=== PATIENT | male | born 1950 | race Caucasian/White ===

== ENCOUNTER → 2020-04-24 09:50 | Outpatient (CLI) | payer OTHER, SELFPAY ==
--- NOTE | 2020-04-24 09:58 | VDLE_ITS ---
Reason For Study: Pain Procedure LEFT Exam performed in department. CFV is compressible, spontaneous, phasic, A preliminary report was called and/or faxed competent, and demonstrates normal to RN @ [facility] office. augmentation. FV is compressible, spontaneous, phasic, competent and demonstrates normal augmentation. POP V is compressible, spontaneous, phasic, competent and demonstrates normal augmentation. T/P Trunk is compressible. PTV is compressible. LT PerV is compressible. Acute superficial vein thrombus is noted in the left GSV from distal-mid calf. 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 Interpretation Summary Deep veins of the left lower extremity are patent and compressible segmentally. There is no evidence of left lower extremity deep vein thrombosis. Valvular competence appears intact within the proximal deep venous system on the left . Acute superficial thrombophlebitis is noted in the left great saphenous vein in the mid- and distal calf. Chronic venous changes are also noted elsewhere within other segments of the left great saphenous vein. Ordering Physician: Dudley May Referring Physician: Dudley Mya Performed By: Jana Farr RVT and Student
== END ==
PROVIDERS: PCP Family Medicine; Referring Provider Family Medicine; Visit Provider Family Medicine
DX: M79.605 Pain in left leg (principal)
CPT/HCPCS: 93971

== ENCOUNTER → 2020-07-28 14:23 | Outpatient (CLI) | payer OTHER, SELFPAY | PROVIDERS: PCP Family Medicine; Referring Provider Family Medicine; Visit Provider Family Medicine | DX: Z20.828 Contact with and (suspected) exposure to other viral communicable diseases (principal) | CPT/HCPCS: 87635; U0003 ==

== ENCOUNTER → 2021-02-15 07:30 | Outpatient (CLI) | payer OTHER, SELFPAY ==
[2021-01-31 09:34] VITALS: BMI 32.0
--- NOTE | 2021-02-15 07:32 | ECHOCS_ITS ---
Reason For Study: ARRHYTHMIA Procedure This was a 2D Doppler, Color Flow transthoracic echocardiogram. Exam performed in department. Left Ventricle Normal LV size. Left ventricular systolic function is lower limits of normal. The estimated ejection fraction is 50 %. Mild segmental systolic dysfunction (see wall motion). Stage 1 diastolic dysfunction. Infero-Basal: Akinetic. Basal inferoseptal: Hypokinetic. Posterior-Basal: Mildly hypokinetic. The rest of the wall segments are normal. Right Ventricle Normal RV size. Normal systolic function. Atria The left atrium is mildly enlarged. Normal right atrium. Mitral Valve Normal mitral valve. Tricuspid Valve Normal tricuspid valve. Mild (1+) tricuspid valve insufficiency. Pulmonary artery systolic pressure is 31 mmHg. Aortic Valve Normal aortic valve. Pulmonic Valve Normal pulmonic valve. Great Vessels Normal aortic root. The pulmonary artery is normal size. Normal inferior vena cava. Pericardium/Pleural No pericardial effusion. Medication 22 gauge I.V. with prn adaptor inserted into left arm. Diluted definity 2.0ml given slow IV push to enhance endocardial definition. MMode/2D Measurements & Calculations LVIDd: 6.0 cm IVSd: 1.0 cm Ao root diam: 3.6 cm LVIDs: 4.7 cm LVPWd: 1.00 cm RVDd: 4.5 cm FS: 21.3 % LAV(MOD-bp): 87.4 ml LVAd ap4: 42.4 cm2 LVAd ap2: 43.3 cm2 LAV(MOD-bp) Indexed: 38.2 ml/m2 LVLd ap4: 9.8 cm LVLd ap2: 9.7 cm LAV(MOD-sp2): 86.3 ml EDV(MOD-sp4): 149.5 ml EDV(MOD-sp2): 157.7 ml LAV(MOD-sp4): 86.9 ml EDV(sp4-el): 155.5 ml EDV(sp2-el): 163.5 ml LVAs ap4: 27.5 cm2 LVAs ap2: 28.3 cm2 LVLs ap4: 8.5 cm LVLs ap2: 8.6 cm ESV(MOD-sp4): 72.2 ml ESV(MOD-sp2): 78.0 ml ESV(sp4-el): 75.5 ml ESV(sp2-el): 79.6 ml EF(MOD-sp4): 51.7 % EF(MOD-sp2): 50.6 % EF(sp4-el): 51.4 % SV(MOD-sp4): 77.3 ml SV(MOD-sp2): 79.7 ml SV(sp4-el): 79.9 ml LA A4 area: 26.1 cm2 LA dimension(2D): 4.1 cm RA A4 area: 21.5 cm2 Time Measurements MV dec time: 0.31 sec Doppler Measurements & Calculations MV E max joe: 53.1 cm/sec Lat Peak E' Joe: 10.2 cm/sec Med Peak E' Joe: 6.8 cm/sec MV A max joe: 60.3 cm/sec E/E' lat: 5.2 E/E' med: 7.8 MV E/A: 0.88 Ao V2 max: 137.6 cm/sec LV V1 max: 88.1 cm/sec PA V2 max: 107.1 cm/sec Ao max P.6 mmHg LV V1 max P.1 mmHg TR max joe: 259.3 cm/sec TR max P.9 mmHg ECHO/Echo Complete W/ Contrast Interpretation Summary Normal LV size. Left ventricular systolic function is lower limits of normal. The estimated ejection fraction is 50 %. Mild segmental systolic dysfunction (see wall motion). Stage 1 diastolic dysfunction. Ordering Physician: Benson Bland Referring Physician: Dudley Mya Performed By: Amy Garcia, YESICA, RVT
== END ==
PROVIDERS: PCP Family Medicine; Referring Provider Internal Medicine Cardiovascular Disease; Visit Provider Internal Medicine Cardiovascular Disease
DX: I49.49 Other premature depolarization (principal); E78.5 Hyperlipidemia, unspecified
CPT/HCPCS: 93225; 93226; 93306; Q9957; A4216; C8929

== ENCOUNTER → 2021-03-01 07:00 | Outpatient (CLI) | payer OTHER, SELFPAY ==
[2021-01-31 09:34] VITALS: BMI 32.0
--- NOTE | 2021-03-01 09:35 | STRESSREP_ITS ---
Stress Test Report Exercise myocardial perfusion stress test. 70-year-old man with a history of abnormal echocardiogram. Stress protocol: Resting EKG demonstrates normal sinus rhythm with a rate of 67 bpm occasional premature ventricular complexes noted. Resting blood pressures 150/88 mmHg. The patient exercised according to the regular Shayne protocol for total duration of 9 minutes. Patient completed stage III of the Shayne protocol. The maximum heart rate attained was 139 bpm which was 93% of maximum predicted heart rate the maximum workload was 10.1 metabolic equivalents. At rest there were no ST or T wave changes noted to suggest ischemia at peak exercise upsloping ST changes were noted. Occasional premature ventricular complexes were noted e specially during recovery. No chest pain was noted the test was terminated due to target heart rate attainment. The peak blood pressures 174/82 mmHg. Myocardial perfusion protocol. 14.3 mCi of technetium 99m sestamibi was injected at rest. The patient exercised according to regular Shayne protocol for 9 minutes and at peak exercise 44.7 mCi of technetium 99m sestamibi was injected stress images were obtained stress and rest images were reconstructed in comparing the short axis vertical long and horizontal long axis. Gated images were also obtained. Perfusion SPECT analysis: Review of the stress images demonstrate normal uptake of tracer noted in all areas of the myocardium. There is however a portion of the inferior wall which reduced perfusion noted. The resting images demonstrate a similar pattern. There are no areas of improvement to suggest ischemia. The above is suggestive of a possible previous inferior infarct though diaphragmatic and GI attenuation artifact are possible. Gated SPECT analysis: The gated ejection fraction is 51%. Conclusion: Exercise myocardial perfusion stress test with no evidence of ischemia at a high workload. Previous inferior infarct cannot be completely excluded. Preserved ejection fraction is present.
== END ==
PROVIDERS: PCP Family Medicine; Referring Provider Internal Medicine Cardiovascular Disease; Visit Provider Internal Medicine Cardiovascular Disease
DX: R93.1 Abnormal findings on diagnostic imaging of heart and coronary circulation (principal); I49.49 Other premature depolarization; E78.5 Hyperlipidemia, unspecified
CPT/HCPCS: 78452; 93017; A9500; A4216

== ENCOUNTER → 2021-04-03 10:15 | Outpatient (CLI) | payer OTHER, SELFPAY ==
[2021-01-31 09:34] VITALS: BMI 32.0
--- NOTE | 2021-04-03 10:20 | RAD_ITS ---
STUDY: X-RAY CHEST REASON FOR EXAM: Male, 70 years old. BRONCHITIS TECHNIQUE: PA and lateral views of the chest. COMPARISON: None. FINDINGS: Increased linear markings at the right lung base suggestive of either linear atelectasis and/or scarring. There is no demonstrated pleural abnormality. Normal size heart. Normal mediastinum and wilmer. Normal visualized pulmonary arteries. There is atherosclerotic calcification of the aortic arch with tortuosity. There are degenerative changes of the visualized thoracic spine. Normal visualized ribs, clavicles, and shoulders. There is no demonstrated abnormality of the visualized soft tissue structures of the upper abdomen. RAD/Chest PA and Lateral IMPRESSION: Increased linear markings at the right lung base suggestive of either linear atelectasis and/or linear scarring. Electronically Signed: Tien Garnett MD at 14:31 EDT , Service support ,
== END ==
PROVIDERS: PCP Family Medicine; Referring Provider Family Medicine; Visit Provider Family Medicine
DX: J20.9 Acute bronchitis, unspecified (principal)
CPT/HCPCS: 71046

== ENCOUNTER → 2021-04-03 10:22 | Outpatient (CLI) | payer OTHER, SELFPAY ==
[2021-01-31 09:34] VITALS: BMI 32.0
== END ==
PROVIDERS: PCP Family Medicine; Visit Provider Family Medicine
DX: J20.9 Acute bronchitis, unspecified (principal)
CPT/HCPCS: 87635; U0005; U0003

== ENCOUNTER 2021-10-24 10:32 | Outpatient (CLI) | payer OTHER, SELFPAY ==
--- NOTE | 2021-10-24 10:45 | RAD_ITS ---
EXAM: XR CHEST, 2 VIEWS : 1950 CLINICAL INDICATION: COUGH AND SOB TECHNIQUE: Frontal and lateral views of the chest. This report was created using [employer] report generation technology. COMPARISON: 04/03/2021 FINDINGS: LUNGS AND PLEURAL SPACES: There is mild scarring at the lung bases which is stable. There is no focal consolidation. No pneumothorax. No effusion. HEART: Unremarkable. Cardiac silhouette not enlarged. MEDIASTINUM: Central airways and mediastinal contour are unremarkable. BONES/JOINTS: Unremarkable. SOFT TISSUES: Unremarkable. RAD/Chest PA and Lateral IMPRESSION: Mild bibasilar scarring. There is no acute pulmonary abnormality. at 1647 Reported and signed by: Blake Gonzalez MD Electronically Signed: Blake Gonzalez MD at 16:46 EST ,
== END 2021-10-24 23:59 | disposition short-term general hospital (02) ==
LOC: MTRAD 10:36
PROVIDERS: PCP Family Medicine; Referring Provider Registered Nurse; Visit Provider Registered Nurse
DX: J22 Unspecified acute lower respiratory infection (principal)
CPT/HCPCS: 71046

== ENCOUNTER → 2021-12-06 07:57 | Outpatient (CLI) | payer OTHER, SELFPAY ==
[2021-12-06 10:27] LABS: Anion Gap 3 (5-15); BUN 13 mg/dL (7-18); BUN/Creat Ratio 12.7 RATIO (10-20); Chloride 107 mmol/L (98-107); Cholesterol 208 mg/dL (200); Creatinine, Serum 1.02 mg/dL (0.70-1.30); EST Glomerular Filtration Rate 76 mL/min (>60); Est Glom Filt Rate - Afr Amer 92 mL/min (>60); Glucose 101 mg/dL (74-106); High Density Lipoprotein 30 mg/dL; PSA,Total - Annual Screen 9.25 ng/mL (0.00-4.00); Potassium 4.3 mmol/L (3.5-5.1); Sodium Level 139 mmol/L (136-145); Triglycerides 173 mg/dL; Very Low Density Lipoprotein 35 mg/dL (5-40)
== END ==
PROVIDERS: PCP Family Medicine; Referring Provider Family Medicine; Visit Provider Family Medicine
DX: E78.5 Hyperlipidemia, unspecified (principal)
CPT/HCPCS: 36415; 80048; 80061; 84153; 84403; G0103

== ENCOUNTER → 2022-01-29 | Outpatient (CLI) | payer OTHER, SELFPAY ==
[2022-01-29 10:11] LABS: Absolute Lymphocyte Count 1.25 X10^3/uL (0.83-4.51); Absolute Neutrophil Count 3.8 X10^3/uL (2.0-7.7); Basophil# 0.05 X10^3/uL; Basophil% 0.8 % (0-1); Eosinophil# 0.18 X10^3/uL; Eosinophils% 3.1 % (0-5); Hematocrit 46.9 % (40-54); Hemoglobin 15.1 g/dL (13.0-16.5); Lymphocyte # 1.25 X10^3/ul (0.83-4.51); Lymphocyte % 21.2 % (19-41); Mean Corp Hgb Conc 32.2 g/dL (32-36); Mean Corpuscular Volume 83.8 fL (80-94); Mean Platelet Vol. 10.1 fl (6.2-12.0); Monocyte# 0.61 X10^3/uL; Monocyte% 10.3 % (0-10); NRBC Flagged by Analyzer 0 % (0-5); Neutrophil # 3.79 X10^3/uL (2.7-7.7); Neutrophil % 64.3 % (47-70); Platelet Count 179 K/mm3 (150-450); RBC Distribution Width CV 12.9 % (11.6-14.6); RBC Distribution Width SD 39.2 fl (35.1-43.9); White Blood Count 5.9 K/mm3 (4.4-11.0)
== END | disposition home or self-care (01) ==
LOC: LAB 09:26
PROVIDERS: PCP Family Medicine; Referring Provider Nurse Practitioner Adult Health; Visit Provider Nurse Practitioner Adult Health
DX: K58.9 Irritable bowel syndrome, unspecified (principal); K21.9 Gastro-esophageal reflux disease without esophagitis
CPT/HCPCS: 36415; 85025

== ENCOUNTER → 2022-04-18 | Outpatient (CLI) | payer OTHER, SELFPAY ==
[2022-04-18 15:34] LABS: PSA,Total- Diagnostic 0.63 ng/mL (0.0-4.0)
== END | disposition home or self-care (01) ==
LOC: MFPLAB 12:27
PROVIDERS: PCP Family Medicine; Referring Provider Family Medicine; Visit Provider Family Medicine
DX: R39.15 Urgency of urination (principal)
CPT/HCPCS: 36415; 84153

== ENCOUNTER 2022-05-02 05:10 | Day surgery (SDC) | payer OTHER, SELFPAY ==
[2022-05-02] MEDS: Lactated Ringers 1,000 ML 15 ML IV (05:45)
[2022-05-02 05:50] VITALS: BP 133/76; PULSE 64; RESP 16; TEMP 36; O2SAT 97; BMI 27.9
--- NOTE | 2022-05-02 06:30 | IMM_PTH ---
PATIENT: REJI DAI LOC: EN U#:[id number] AGE/SX: 71/M ROOM: RE05/02/[address]: Dr. Myron Palomino DO : 1950 BED: DIS: 05/02/2022 SPEC #: [id number] RECD: 05/02/22 11:39 STATUS: CONCHIS THU #: [id number] AGNES: 05/02/22 06:[address]: Myron Palomino DEPT: IMMUNOHISTOCHEMISTRY RECD BY: Norma Hilton ENTERED: 05/02/22 11:39 SP TYPE: IMMUNO OTHR DR: Dr. Dudley May MD Tissues: B - Stomach, NOS C - Esophagus, NOS Procedures: H Pylori (initial) P53 (initial) KI-67 (add) PHYSICIAN & INSTITUTION [place] [id number] SPECIMEN INFORMATION: Tissue Source: B ? Gastric body biopsy, C ? Distal esophagus biopsy Clinical Info: IBS, GERD, colon polyps Specimen Number: [id number] B & C CPT code: 12813 x2, 82319 METHODOLOGY: Deparaffinized sections of prefer/formalin-fixed tissue or PAP/DQ stained slides are incubated with monoclonal/polyclonal antibodies/oligonucleotide probes. Localization is made via biotin free immunoperoxidase method. Appropriate controls are performed and reacted as expected. Results on target cell population are indicated in the following table: RESULTS: ANTIBODY / CLONE RESULT Block B H Pylori (polyclonal) negative Block C P53 (DO-7) negative Ki-67 (30-9) positive, low These tests were developed and their performance characteristics determined by [facility]. They may not have been cleared or approved by the U.S. Food and Drug Administration. The FDA has determined that such clearance or approval is not necessary. The above immunohistochemical/dualISH markers are ordered and reviewed by the Pathologist. INTERPRETATION: B. Gastric body, biopsy: Negative for Helicobacter pylori organisms. C. Distal esophagus, biopsy: No evidence of dysplasia. AM:lindsey 05/06/2022
--- NOTE | 2022-05-02 06:30 | EGD_PTH ---
PATIENT: REJI DAI LOC: EN U#:[id number] AGE/SX: 71/M ROOM: RE05/02/[address]: Dr. Myron Palomino DO : 1950 BED: DIS: 05/02/2022 SPEC #: [id number] RECD: 05/02/22 10:17 STATUS: CONCHIS THU #: [id number] AGNES: 05/02/22 06:[address]: Myron Palomino DEPT: SURGICAL PATHOLOGY RECD BY: Dang Garrett ENTERED: 05/02/22 10:58 SP TYPE: EGD BIOPSY OT DR: Dr. Dudley May MD Tissues: A - Duodenum, NOS B - Gastric mucous membrane C - Esophagus, NOS D - Ascending colon E - Sigmoid colon biopsy Procedures: Special Stain Group II Surgery Specimen Level IV Alcian Blue/PAS (control) HEADER OPERATION: Colonoscopy, EGD ([facility] [place]) with biopsies and polypectomy PRE-OP DIAGNOSIS: IBS, GERD, history of colon polyps TISSUE SUBMITTED: A ? Duodenum biopsy, B ? Gastric body biopsy, C - Distal esophagus biopsy, D ? Ascending colon lipoma biopsy, E ? Sigmoid polyp MICROSCOPIC DIAGNOSIS A. Duodenum, biopsy: Suggestive of mild Mckay?s gland hyperplasia. B. Gastric body, biopsy: Mild chronic inflammation. See comment. C. Distal esophagus, biopsy: Gastroesophageal junctional mucosa with mild chronic inflammation. Focal goblet cell metaplasia. No evidence of dysplasia. See comment. D. Ascending colon, biopsy: Fragments of benign colonic mucosa. See comment. E. Sigmoid colon polyp, biopsy: Tubular adenoma. AM:lindsey 05/03/2022 COMMENT B. The results of immunohistochemistry for Helicobacter pylori will be reported separately ([id number]). C. Immunohistochemistry ([id number]) for P53 and Ki-67 will be performed and results will be reported separately. Alcian blue/PAS stain with matched control supports the above diagnosis. D. A lipomatous lesion is not identified. Clinical correlation is suggested. MICROSCOPIC DESCRIPTION Slides are reviewed. GROSS DESCRIPTION A - Received in fixative is one container labeled with the patient's name and designated duodenum biopsy. The specimen consists of multiple irregular fragments of light garcia soft tissue that in aggregate measure 0.8 x 0.5 x 0.1 cm. The specimen is totally submitted in one cassette. B - Received in fixative is one container labeled with the patient's name and designated gastric body biopsy. The specimen consists of multiple irregular fragments of light garcia soft tissue that in aggregate measure 1 x 0.2 x 0.1 cm. The specimen is totally submitted in one cassette. C - Received in fixative is one container labeled with the patient's name and designated distal esophagus. The specimen consists of two irregular fragments of light garcia soft tissue that in aggregate measure 0.6 x 0.3 x 0.1 cm. The specimen is totally submitted in one cassette. D - Received in fixative is one container labeled with the patient's name and designated ascending colon lipoma biopsy. The specimen consists of multiple irregular fragments of light garcia soft tissue that in aggregate measure 1 x 0.2 x 0.1 cm. The specimen is totally submitted in one cassette. E - Received in fixative is one container labeled with the patient's name and designated sigmoid polyp. The specimen consists of a garcia-pink polyp measuring 1 x 0.5 x 0.3 cm. The specimen is totally submitted in one cassette. / SJ:rg 05/02/2022 TC:3 CPT: 89625 x5, 93085
--- NOTE | 2022-05-02 06:34 | HP.PCM_ITS ---
History and Physical Date of Admission: 05/02/22 REJI DAI, is a 71 M who presents to the office today for GERD no longer controlled with PPI therapy. He is on pantoprazole 40 mg daily, and now often needs to supplement with famotidine. GERD x many years, remote EGD which was benign. Gets burning all the way up to his throat, feels like food and acid are coming back up. No nausea or vomiting. No hematemesis. No dysphagia. Dull discomfort at times in epigastrium. Normal appetite. No unexplained weight loss. Rare use of ibuprofen. Sleeps w/ head of bed elevated. Describes bowels as irritable. Rare constipation. Often gets loose stools, for past couple of years. Recalls taking a prescription medication at one time, but didn't want to remain on usp med. No melena or hematochezia. No nocturnal diarrhea. Not related to foods. Hx colon polyps, last colonoscopy was 5 yrs ago, recalls being told to get next colonoscopy in 5 yrs. Maternal grandmother had colon cancer. ROS Const Constitutional: Positive for fatigue and weight change ENT ENT: Positive for ear or mastoid pain, nasal congestion and sore throat; No difficulty swallowing Resp Respiratory: Positive for wheezing Cardio Cardiology: Positive for dyspnea on exertion Gastro GI: Positive for abdominal pain and change in bowel habits; No belching, bloating, change in stool character, coffee ground emesis, constipation, cramping, diarrhea, heartburn, difficulty swallowing, feeling full early, excessive flatus, incontinent of stools, Vomiting blood/hematemesis, Blood in stool, loose stools, Black,tarry stools, nausea/dyspepsia, pain with swallowing, vomiting or other Genitourinary Male: Positive for urinary urgency Musc Musculoskeletal: Positive for back pain and stiffness; No joint pain Skin Skin: No yellowing of the eye or itchy eyes Psych Psychiatric: No anxiety and No depression Endo Endocrine: Positive for fatigue and weight change Aller/Imm Allergy/Immunologic: Positive for wheezing; No itchy eyes Titi/Lymp Hematologic/Lymphatic: No easy bleeding or easy bruising Exam Const General: cooperative, healthy appearing, no acute distress, well developed and well groomed Eyes Conjunctivae: conjunctivae normal Sclera: sclerae normal Neck Neck: normal visual inspection Resp Effort & Inspection: normal respiratory effort GI Inspection: normal to inspection Palpation: soft, no hepatosplenomegaly and nontender Extrem General: no pedal edema Psych Mood: congruent mood Affect: normal affect Quality Reporting Tobacco Screening (CMS 138) Smoking Status: Former smoker Assessment and Plan Assessment and Plan (1) IBS (irritable bowel syndrome): ?Status:?Acute (2) GERD (gastroesophageal reflux disease): ?Status:?Chronic (3) History of colon polyps: ?Status:?Acute ? ? ? Orders:?Orders: ? CBC W/Diff, Automated Today K58.9, K21.9 ?Plan - Brenda Gunn TEXTILE STYLIST, TEXTILE STYLIST-C: 71 yr old male with GERD which is no longer managed adequately with pantoprazole 40 mg daily. DDx includes esophagitis, Valdez's, gastritis, duodenitis, peptic ulcer, malignancy, infection with H pylori. He will be scheduled for EGD with Dr Palomino. Will have him increase pantoprazole 40 mg to BID for the next 8 wks, and take sucralfate QAC for the next month to try to ameliorate his symptoms. Will check CBC to make sure no anemia. For his irritable bowels I recommended he try a fiber supplement. DDx includes IBS, microscopic colitis. Hx colon polyps. He will be scheduled for colonoscopy along with EGD. F/u 2 wks after endoscopy with Dr Palomino. Plan Details Other Medications: ?Changed: ? From: pantoprazole 40 mg? PO DAILY ? ? ? To: pantoprazole ?? increase to twice daily for 2 months, then resume once daily dose 40 mg? PO BID 120 tabs 0RF ? ? I have re-examined the patient. There are no clinical changes since date of exam.
[2022-05-02 07:15] VITALS: BP 113/74; BP 133/76; PULSE 57; RESP 16; O2SAT 98
--- NOTE | 2022-05-02 07:19 | OP.EGD_ITS ---
Patient Name: Edvin Villa Procedure Date: 05/02/2022 6:22 AM Date of : 1950 Age: 71 Procedure: Upper GI endoscopy Indications: Epigastric abdominal pain, Functional Dyspepsia Providers: Myron Palomino DO Medicines: Monitored Anesthesia Care Patient Profile: This is a 71 year old male. Refer to note in patient chart for documentation of history and physical. Patient has symptoms of chronic dyspepsia and chronic heartburn. Complications: No immediate complications. Procedure: Pre-Anesthesia Assessment: - Prior to the procedure, a History and Physical was performed, and patient medications and allergies were reviewed. The risks and benefits of the procedure and the sedation options and risks were discussed with the patient. All questions were answered and informed consent was obtained. Patient identification and proposed procedure were verified by the physician in the pre-procedure area. Mental Status Examination: alert and oriented. Airway Examination: normal oropharyngeal airway and neck mobility. Respiratory Examination: clear to auscultation. CV Examination: normal. Prophylactic Antibiotics: The patient does not require prophylactic antibiotics. Prior Anticoagulants: The patient has taken no previous anticoagulant or antiplatelet agents. After reviewing the risks and benefits, the patient was deemed in satisfactory condition to undergo the procedure. The anesthesia plan was to use moderate sedation / analgesia (conscious sedation). Immediately prior to administration of medications, the patient was re-assessed for adequacy to receive sedatives. The heart rate, respiratory rate, oxygen saturations, blood pressure, adequacy of pulmonary ventilation, and response to care were monitored throughout the procedure. The physical status of the patient was re-assessed after the procedure. After obtaining informed consent, the endoscope was passed under direct vision. Throughout the procedure, the patient's blood pressure, pulse, and oxygen saturations were monitored continuously. The Colonoscope was introduced through the mouth, and advanced to the second part of duodenum. The upper GI endoscopy was accomplished without difficulty. The patient tolerated the procedure well. Scope In: 6:41:03 AM Scope Out: 6:47:10 AM Total Procedure Duration Time 0 hours 6 minutes 7 seconds Findings: The Z-line was irregular and was found 40 cm from the incisors. Biopsies were taken with a cold forceps for histology. Verification of patient identification for the specimen was done. Estimated blood loss was minimal. A small hiatal hernia was present. Localized mild inflammation characterized by congestion (edema) was found in the gastric body. Biopsies were taken with a cold forceps for histology. Verification of patient identification for the specimen was done. Estimated blood loss was minimal. Localized moderate inflammation characterized by congestion (edema), granularity and shallow ulcerations was found in the duodenal bulb. Biopsies were taken with a cold forceps for histology. Verification of patient identification for the specimen was done. Estimated blood loss was minimal. Impression: - Z-line irregular, 40 cm from the incisors. Biopsied. - Small hiatal hernia. - Gastritis. Biopsied. - Duodenitis. Biopsied. Recommendation: - Discharge patient to home. - Resume previous diet. - Continue present medications. - Await pathology results. - Repeat upper endoscopy in 1 year for surveillance. Procedure Code(s): --- Professional --- 09617, Esophagogastroduodenoscopy, flexible, transoral; with biopsy, single or multiple CPT copyright 2017 [employer]. All rights reserved. The codes documented in this report are preliminary and upon medical imaging technologist review may be revised to meet current compliance requirements. Myron Palomino DO 05/02/2022 7:18:39 AM This report has been signed electronically. Number of Addenda: 1 Note Initiated On: 05/02/2022 6:22 AM Addendum Number: 1 Addendum Date: 07/04/2022 6:29:54 AM MAC was used as sedation for this procedure. Myron Palomino DO 07/04/2022 6:30:00 AM This report has been signed electronically.
--- NOTE | 2022-05-02 07:19 | OP.CCLET_ITS ---
07/04/2022 Dudley May MD [address] [id number] Re : Upper GI endoscopy procedure for Edvin Morrill Dear Dr. May This procedure was performed on April. My impressions and recommendations are as follows: Impressions : - Z-line irregular, 40 cm from the incisors. Biopsied. - Small hiatal hernia. - Gastritis. Biopsied. - Duodenitis. Biopsied. Recommendations : - Discharge patient to home. - Resume previous diet. - Continue present medications. - Await pathology results. - Repeat upper endoscopy in 1 year for surveillance. My findings are described in the full procedure note, which is enclosed. If I can be of further assistance, please feel free to contact me at . Sincerely, Myron Palomino, 05/02/2022 7:18:39 AM This report has been signed electronically.
[2022-05-02 07:21] VITALS: BP 115/54; BP 133/76; PULSE 61; RESP 16; TEMP 36.2; O2SAT 100
--- NOTE | 2022-05-02 07:25 | OP.COLON_ITS ---
Patient Name: Edvin Villa Procedure Date: 05/02/2022 6:47 AM Date of : 1950 Age: 71 Procedure: Colonoscopy Indications: High risk colon cancer surveillance: Personal history of colonic polyps Providers: Myron Palomino DO Medicines: Monitored Anesthesia Care Patient Profile: This is a 71 year old male. Refer to note in patient chart for documentation of history and physical. Patient has symptoms of chronic dyspepsia and chronic heartburn. Last Colonoscopy: 5 years ago. Complications: No immediate complications. Procedure: Pre-Anesthesia Assessment: - Prior to the procedure, a History and Physical was performed, and patient medications and allergies were reviewed. The risks and benefits of the procedure and the sedation options and risks were discussed with the patient. All questions were answered and informed consent was obtained. Patient identification and proposed procedure were verified by the physician in the pre-procedure area. Mental Status Examination: alert and oriented. Airway Examination: normal oropharyngeal airway and neck mobility. Respiratory Examination: clear to auscultation. CV Examination: normal. Prophylactic Antibiotics: The patient does not require prophylactic antibiotics. Prior Anticoagulants: The patient has taken no previous anticoagulant or antiplatelet agents. After reviewing the risks and benefits, the patient was deemed in satisfactory condition to undergo the procedure. The anesthesia plan was to use moderate sedation / analgesia (conscious sedation). Immediately prior to administration of medications, the patient was re-assessed for adequacy to receive sedatives. The heart rate, respiratory rate, oxygen saturations, blood pressure, adequacy of pulmonary ventilation, and response to care were monitored throughout the procedure. The physical status of the patient was re-assessed after the procedure. After I obtained informed consent, the scope was passed under direct vision. Throughout the procedure, the patient's blood pressure, pulse, and oxygen saturations were monitored continuously. The Colonoscope was introduced through the anus and advanced to the cecum, identified by appendiceal orifice and ileocecal valve. The colonoscopy was performed without difficulty. The patient tolerated the procedure well. The quality of the bowel preparation was adequate. Scope In: 6:49:07 AM Scope Withdrawal Time 0 hours 19 minutes 0 seconds Scope Out: 7:11:44 AM Total Procedure Duration Time 0 hours 22 minutes 37 seconds Findings: The perianal and digital rectal examinations were normal. Multiple small and large-mouthed diverticula were found in the entire colon. There was no evidence of diverticular bleeding. There was a large lipoma, 22 mm in diameter, in the distal ascending colon. Biopsies were taken with a cold forceps for histology. Verification of patient identification for the specimen was done. Estimated blood loss was minimal. A 11 mm polyp was found in the sigmoid colon. The polyp was semi-pedunculated. The polyp was removed with a hot snare. Resection and retrieval were complete. Area was tattooed with an injection of 0.7 mL of Jacquie ink. Estimated blood loss: none. Non-bleeding internal hemorrhoids were found during retroflexion. The hemorrhoids were mild. Impression: - Severe diverticulosis in the entire examined colon. There was no evidence of diverticular bleeding. - Large lipoma in the distal ascending colon. Biopsied. - One 11 mm polyp in the sigmoid colon, removed with a hot snare. Resected and retrieved. Tattooed. - Non-bleeding internal hemorrhoids. Recommendation: - Repeat colonoscopy in 3 years for surveillance. - Continue present medications. - No aspirin, ibuprofen, naproxen, or other non-steroidal anti-inflammatory drugs for 5 days after polyp removal. Procedure Code(s): --- Professional --- 32634, Colonoscopy, flexible; with removal of tumor(s), polyp(s), or other lesion(s) by snare technique 64520, 59, Colonoscopy, flexible; with biopsy, single or multiple 25463, Colonoscopy, flexible; with directed submucosal injection(s), any substance CPT copyright 2017 [employer]. All rights reserved. The codes documented in this report are preliminary and upon flower pot press operator review may be revised to meet current compliance requirements. Myron Palomino DO 05/02/2022 7:25:09 AM This report has been signed electronically. Number of Addenda: 1 Note Initiated On: 05/02/2022 6:47 AM Addendum Number: 1 Addendum Date: 07/04/2022 6:30:09 AM MAC was used as sedation for this procedure. Myron Palomino DO 07/04/2022 6:30:13 AM This report has been signed electronically.
[2022-05-02 07:26] VITALS: BP 125/72; BP 133/76; PULSE 56; RESP 16; O2SAT 96
--- NOTE | 2022-05-02 07:27 | OP.CCLET_ITS ---
07/04/2022 Dudley May MD [address] [place] [address] Re : Colonoscopy procedure for Edvin Villa Dear Dr. May This procedure was performed on April. My impressions and recommendations are as follows: Impressions : - Severe diverticulosis in the entire examined colon. There was no evidence of diverticular bleeding. - Large lipoma in the distal ascending colon. Biopsied. - One 11 mm polyp in the sigmoid colon, removed with a hot snare. Resected and retrieved. Tattooed. - Non-bleeding internal hemorrhoids. Recommendations : - Repeat colonoscopy in 3 years for surveillance. - Continue present medications. - No aspirin, ibuprofen, naproxen, or other non-steroidal anti-inflammatory drugs for 5 days after polyp removal. My findings are described in the full procedure note, which is enclosed. If I can be of further assistance, please feel free to contact me at . Sincerely, Myron Palomino, 05/02/2022 7:25:09 AM This report has been signed electronically.
[2022-05-02 07:31] VITALS: BP 125/80; BP 133/76; PULSE 54; RESP 16; TEMP 36.3; O2SAT 97
[2022-05-02 07:44] VITALS: BP 133/76
== END 2022-05-02 08:07 | disposition home or self-care (01) ==
LOC: EN 05:10 → AC 05:11
PROVIDERS: PCP Family Medicine; Referring Provider Family Medicine; Visit Provider Internal Medicine Gastroenterology
PROC: 0DJD8ZZ Inspection of Lower Intestinal Tract, Via Natural or Artificial Opening Endoscopic (ICD-10-PCS; CPT 45378; principal; 2022-05-02 06:25)
DX: K21.00 Gastro-esophageal reflux disease with esophagitis, without bleeding (principal); D12.5 Benign neoplasm of sigmoid colon; K64.8 Other hemorrhoids; K31.89 Other diseases of stomach and duodenum; K57.30 Diverticulosis of large intestine without perforation or abscess without bleeding; K44.9 Diaphragmatic hernia without obstruction or gangrene; K58.9 Irritable bowel syndrome, unspecified; K29.50 Unspecified chronic gastritis without bleeding; E78.00 Pure hypercholesterolemia, unspecified; Z86.718 Personal history of other venous thrombosis and embolism; Z87.891 Personal history of nicotine dependence; Z79.899 Other long term (current) drug therapy; Z86.010 Personal history of colon polyps
CPT/HCPCS: 45385; 45380; 45381; 43239; 88305; 88313; 88341; 88342; J7120; A4648; J2405